=== PATIENT | male | born 1965 | race Caucasian/White ===

== ENCOUNTER 2024-02-06 15:55 | Inpatient (IN) | payer BC ==
[~2024-02-06] VITALS: Ht 170.2 cm; Wt 70.3 kg
[2024-02-06 16:30] LABS: BASOPHILS % (AUTO) 0.1 % (0.0-2.0); EOSINOPHILS # (AUTO) 0.1 K/uL (0.0-0.7); EOSINOPHILS % (AUTO) 0.8 % (0.0-7.0); HEMOGLOBIN 15.4 g/dL (12.5-16.3); LYMPHOCYTES # (AUTO) 0.3 K/uL (0.8-4.8); LYMPHOCYTES % (AUTO) 2.3 % (20.5-51.5); MEAN CORPUSCULAR HEMOGLOBIN 33.3 uug (23.8-33.4); MEAN CORPUSCULAR HGB CONC 34 g/dL (32.5-36.3); MEAN CORPUSCULAR VOLUME 99.3 fL (73.0-96.2); MONOCYTES # (AUTO) 0.4 K/uL (0.1-1.30); MONOCYTES % (AUTO) 3.5 % (0.0-11.0); NEUTROPHILS # (AUTO) 11.7 K/uL (1.8-8.9); NEUTROPHILS % (AUTO) 93.3 % (38.5-71.5); PLATELET COUNT (AUTO) 259 K/uL (152-348); RED BLOOD CELL COUNT(AUTO) 4.63 MIL/uL (4.06-5.63); WHITE BLOOD COUNT (AUTO) 12.5 K/uL (3.6-10.2)
[2024-02-06 16:37] LABS: DIFFERENTIAL COMMENT 1
[2024-02-06] MEDS: IV NORMAL SALINE 1000 ML BAG IV ONE (16:41)
[2024-02-06 16:42] LABS: AMMONIA 19 umol/L (11-32); CALCIUM 9.5 mg/dL (8.5-10.1); CARBON DIOXIDE 26 mmol/L (21-32); CHLORIDE 103 mmol/L (98-107); CREATININE 1.2 mg/dL (0.6-1.3); GLUCOSE 127 mg/dL (74-106); POTASSIUM 4.1 mmol/L (3.5-5.1); SODIUM SERUM 139 mmol/L (136-145); UREA NITROGEN, BLOOD 16 mg/dL (7-18)
[2024-02-06 16:44] LABS: ETHANOL < 3 MG/DL (0-10)
[2024-02-06 17:01] LABS: ACETAMINOPHEN < 2.0 ug/mL (10-30); ALANINE AMINOTRANSFERASE 35 U/L (16-63); ALBUMIN 3.9 g/dL (3.4-5.0); ALKALINE PHOSPHATASE 80 U/L (50-136); ASPARTATE AMINOTRANSFERASE 29 U/L (15-37); BILIRUBIN,DIRECT 0.3 mg/dL (0.0-0.2); BILIRUBIN,TOTAL 1.4 mg/dL (0.2-1.0); TOTAL PROTEIN, SERUM 7.8 g/dL (6.4-8.2)
[2024-02-06] MEDS ORDERED: METRONIDAZOLE 500 MG/NS 100ML 100 ML IV ONE ×3 (18:02→22:07)
[2024-02-06] MEDS ORDERED: CEFTRIAXONE /D5W 50ML IVPB **ER PYXIS IV ONE (18:02)
[2024-02-06] MEDS: CEFTRIAXONE 1 G in IV DEXTROSE 5% 50 ML IV ONE (18:06)
[2024-02-06] MEDS: METRONIDAZOLE 500 MG/NS 100 ML PIGGYBACK IV ONE (19:15)
[2024-02-06] MEDS: ACETAMINOPHEN 500 MG TABLET PO ONE (19:15)
[2024-02-06] MEDS ORDERED: ACETAMINOPHEN 500 MG TABLET ONE (19:23)
[2024-02-06] MEDS ORDERED: ONDANSETRON 4 MG/2 ML VIAL ONE ×2 (19:30→19:48)
[2024-02-06] MEDS: ONDANSETRON 4 MG/2 ML VIAL IV ONE (19:38)
[2024-02-06 20:15] VITALS: BP 117/71; TEMP 99; O2SAT 99
[2024-02-06] MEDS ORDERED: IV D5W-0.45% NS +20 KCL 1,000 ML IV PRN ×2 (20:15→20:30)
[2024-02-06] MEDS ORDERED: REMEDY ESSENTIAL ZINC PASTE 113 GM TP PRN ×2 (20:15→20:30)
[2024-02-06] MEDS ORDERED: IV NS 1000 ML 1,000 ML IV PRN (20:15)
[2024-02-06] MEDS ORDERED: ACETAMINOPHEN 325 MG TABLET PO PRN (20:15)
[2024-02-06] MEDS ORDERED: ONDANSETRON 4 MG/2 ML VIAL IV PRN (20:15)
[2024-02-06] MEDS ORDERED: CEFTRIAXONE 1 G in IV DEXTROSE 5% 50 ML IV SCH (20:15)
[2024-02-06] MEDS: IV NORMAL SALINE 500 ML IV ONE (21:02)
[2024-02-06] MEDS: ONDANSETRON 4 MG/2 ML VIAL IV PRN (21:02)
[2024-02-06] MEDS: IV NS 1000 ML 1,000 ML IV PRN (21:15)
[2024-02-06] MEDS ORDERED: METRONIDAZOLE 500 MG/NS 100ML 500 MG in PREMIXED 1 EACH IV SCH (22:00)
[2024-02-07] MEDS: ACETAMINOPHEN 325 MG TABLET PO PRN (00:04)
[2024-02-07 00:18] VITALS: BP 109/62; TEMP 100.8; O2SAT 94
[2024-02-07] MEDS: METRONIDAZOLE 500 MG/NS 100ML 500 MG in PREMIXED 1 EACH IV SCH ×2 (02:10→09:16)
[2024-02-07 04:21] VITALS: BP 104/62; TEMP 97.9; O2SAT 94
[2024-02-07 07:37] VITALS: BP 101/66; TEMP 98.1; O2SAT 95
[2024-02-07 11:37] VITALS: BP 116/66; TEMP 97.8; O2SAT 96
[2024-02-07] MEDS ORDERED: AZIT1PAC9 PO (14:42)
[2024-02-07 16:00] VITALS: BP 117/80; TEMP 98.4; O2SAT 97
[2024-02-07] MEDS: CEFTRIAXONE 1 G in IV DEXTROSE 5% 50 ML IV SCH (17:13)
[2024-02-07] MEDS ORDERED: AZIT500T PO (17:52)
== END 2024-02-07 18:57 | disposition home or self-care (01) | DRG 372 ==
LOC: ER 15:55 → TELE3 20:42
PROVIDERS: ADMIT Internal Medicine; ATTEND Internal Medicine
DX: A04.9 Bacterial intestinal infection, unspecified (principal); E87.20 Acidosis, unspecified; R17 Unspecified jaundice; E86.0 Dehydration; A08.4 Viral intestinal infection, unspecified; R55 Syncope and collapse
CPT/HCPCS: 36415; 70450; 71045; 72125; 83605; 84484; 85025; 85730; 87040; 93005; A9150; G0378; G0480; J0696; J2405; J3490; J7040